=== PATIENT | female | born 1980 | race Caucasian/White ===

== ENCOUNTER 2022-05-02 18:18 | Emergency (ER) | payer SELFPAY ==
[~2022-05-02] VITALS: Ht 162.6 cm; Wt 65.3 kg
[2022-05-02] MEDS ORDERED: LORAZEPAM 2 MG/1 ML VIAL IV ONE (19:30)
[2022-05-02] MEDS ORDERED: HYDROMORPHONE 1 MG/1 ML DISP.SYRIN IV ONE (19:30)
[2022-05-02] MEDS ORDERED: ONDANSETRON 4 MG/2 ML VIAL IV ONE (19:30)
[2022-05-02] MEDS ORDERED: HYDROMORPHONE 1 MG/1 ML DISP.SYRIN ONE (19:30)
[2022-05-02] MEDS ORDERED: ONDANSETRON 4 MG/2 ML VIAL ONE (19:30)
[2022-05-02] MEDS ORDERED: LORAZEPAM 2 MG/1 ML VIAL ONE (19:31)
[2022-05-02 20:01] LABS: *BILIRUBIN,URIN NEGATIVE (NEGATIVE); *BLOOD, URINE 2+ (NEGATIVE); *COLOR,URINE YELLOW (YELLOW); *KETONES,URINE NEGATIVE (NEGATIVE); *UROBILINOGEN,URINE 0.2 E.U./dl (NORMAL); LEUKOCYTE ESTERASE ,URINE 1+ (NEGATIVE); NITRITE, URINE NEGATIVE (NEGATIVE); PH,URINE 6.5 (5.0-8.0); UGLUCOSE NEGATIVE (NEGATIVE)
[2022-05-02 20:02] LABS: *CLARITY,URINE HAZY (CLEAR)
[2022-05-02 20:03] LABS: *URINE HCG, QUAL NEGATIVE (NEGATIVE); BACTERIA,URINE MODERATE /HPF (NONE SEEN); RBC,URINE 20-50 /HPF (0-3); SQUAMOUS EPITHELIAL CELL,UR MODERATE /HPF (NONE SEEN)
[2022-05-02] MEDS ORDERED: PHEN-705 PO (21:00)
[2022-05-02] MEDS ORDERED: HYDR-4209 PO (21:00)
[2022-05-02] MEDS ORDERED: NITR-84 PO (21:00)
[2022-05-02] MEDS ORDERED: PHENAZOPYRIDINE HCL 100 MG TABLET PO ONE (21:00)
[2022-05-02] MEDS ORDERED: NITROFURANTOIN/NITROFURAN MAC 100 MG CAPSULE PO ONE ×2 (21:00→21:05)
[2022-05-02] MEDS ORDERED: PHENAZOPYRIDINE HCL 100 MG TABLET ONE (21:06)
[2022-05-02 21:16] VITALS: BP 129/70
== END 2022-05-02 21:26 | disposition home or self-care (01) ==
LOC: ER 18:26
DX: N30.10 Interstitial cystitis (chronic) without hematuria (principal); Z87.440 Personal history of urinary (tract) infections
CPT/HCPCS: 99284; 96374; 96375; 81001; 84703; J2060; J2405; J1170; A4663

== ENCOUNTER 2022-05-04 19:06 | Emergency (ER) | payer SELFPAY ==
[~2022-05-04 19:06] MED LIST: HYDR-4209 PO; NITR-84 PO; PHEN-705 PO
--- NOTE | 2022-05-04 19:29 | NUR ---
accidently registered by ER advertising clerk.
== END 2022-05-04 19:30 | disposition left against medical advice (07) ==
LOC: ER 19:08
DX: Z53.21 Procedure and treatment not carried out due to patient leaving prior to being seen by health care provider (principal)